=== PATIENT | male | born 1965 | race Asian ===

== ENCOUNTER 2022-02-02 00:39 | Inpatient (IN) | payer OTHER ==
[~2022-02-02] VITALS: Ht 162.6 cm; Wt 68.0 kg
[2022-02-02 02:58] LABS: BASOPHILS % 0.9 % (0.0-2.0); EOSINOPHILS % 3.1 % (0.0-5.0); HEMATOCRIT. 43.1 % (42.0-52.0); MEAN CORPUSCULAR HEMOGLOBIN 31.9 pg (28.0-32.0); MEAN CORPUSCULAR VOLUME 91.5 fL (80.0-94.0); MEAN PLATELET VOLUME 8.1 fl (7.4-10.4); PLATELET 213 x1000/uL (130-400); RED BLOOD CELL COUNT 4.71 mill/uL (4.7-6.1)
[2022-02-02 03:06] LABS: CHLORIDE 106 mEq/L (98-107)
[2022-02-02] MEDS ORDERED: MORPHINE SULFATE 4 MG/ML CPJ (NOT FOR IM USE) IV NR (04:24)
[2022-02-02] MEDS ORDERED: ONDANSETRON HCL 4MG/2ML INJ IV NR (04:24)
[2022-02-02 05:04] LABS: CLARITY URINE CLOUDY (CLEAR); COLOR URINE YELLOW (YELLOW); KETONES URINE NEGATIVE (NEGATIVE); LEUKOCYTE ESTERASE URINE NEGATIVE (NEGATIVE); NITRITE URINE NEGATIVE (NEGATIVE); OCCULT BLOOD URINE NEGATIVE (NEGATIVE); PROTEIN URINE NEGATIVE (NEGATIVE); SPECIFIC GRAVITY URINE 1.017 (1.005-1.030)
[2022-02-02] MEDS ORDERED: SODIUM CHLORIDE 0.9% 1,000 ML IV ONE (05:30)
[2022-02-02] MEDS ORDERED: ACETAMINOPHEN 325MG TABLET PO PRN ×3 (09:15→10:30)
[2022-02-02] MEDS ORDERED: KETOROLAC 15MG/ML VIAL IV PRN (09:15)
[2022-02-02 09:41] LABS: ETHANOL BLOOD < 10 mg/dL; HDL CHOLESTEROL 42 mg/dL (40-59); LDL CHOLESTEROL 69 mg/dL (5-100)
[2022-02-02] MEDS ORDERED: PANTOPRAZOLE SODIUM 40 MG/VIAL IV SCH (10:28)
[2022-02-02] MEDS ORDERED: ZOLPIDEM TARTRATE 5MG TABLET PO PRN (10:30)
[2022-02-02] MEDS ORDERED: MAGNESIUM/ALUMINUM HYDROXIDE/SIMETHICONE 30ML UDC PO PRN (10:30)
[2022-02-02] MEDS ORDERED: DOCUSATE SODIUM 100MG CAPSULE PO PRN (10:30)
[2022-02-02] MEDS ORDERED: CLONIDINE 0.1MG TABLET PO PRN (10:30)
[2022-02-02] MEDS ORDERED: NA PHOS,M-B/NA PHOS,DI-BA ENEMA 118ML PR PRN (10:30)
[2022-02-02] MEDS ORDERED: ONDANSETRON HCL 4MG/2ML INJ IV PRN (10:30)
[2022-02-02] MEDS ORDERED: GUAIFENESIN 200MG/10ML SUGAR FREE UDC PO PRN (10:30)
[2022-02-02] MEDS ORDERED: IPRATROPIUM/ALBUTEROL 0.5-3(2.5)MG/3ML NEB NEB PRN (10:30)
[2022-02-02 10:35] LABS: AMYLASE 78 IU/L (25-115)
[2022-02-02] MEDS: ENOXAPARIN 40MG/0.4ML SYR SUBCUT SCH (14:08)
[2022-02-02 18:00] VITALS: BP 143/92
[2022-02-02 19:53] VITALS: BP 130/80
[2022-02-02 20:00] VITALS: BP 130/80
[2022-02-02] MEDS ORDERED: CHOL400D7 MT (20:23)
[2022-02-02] MEDS ORDERED: NAPR-681 PO (20:24)
[2022-02-02] MEDS: DOXAZOSIN MESYLATE 4MG TABLET PO SCH (20:40)
[2022-02-03] VITALS: BP 116/73
[2022-02-03] MEDS ORDERED: ENOXAPARIN 40MG/0.4ML SYR SUBCUT SCH (09:00)
[2022-02-03 11:55] LABS: BASOPHILS % 1.2 % (0.0-2.0); EOSINOPHILS % 4.3 % (0.0-5.0); HEMATOCRIT. 41.2 % (42.0-52.0); HEMOGLOBIN. 14.7 g/dL (14.0-18.0); LYMPHOCYTES % 20.4 % (20.0-50.0); MEAN CORPUSCULAR HEMOGLOBIN 32.6 pg (28.0-32.0); MEAN CORPUSCULAR VOLUME 91.4 fL (80.0-94.0); MEAN PLATELET VOLUME 8.7 fl (7.4-10.4); MONOCYTES % 7.9 % (2.0-8.0); NEUTROPHILS % 66.2 % (40.0-76.0); PLATELET 185 x1000/uL (130-400); RED BLOOD CELL COUNT 4.51 mill/uL (4.7-6.1); RED CELL DISTRIBUTION WIDTH 12.5 % (11.6-14.6)
[2022-02-03 12:00] VITALS: BP 115/80
[2022-02-03 13:42] LABS: CHLORIDE 105 mEq/L (98-107)
[2022-02-03 13:57] LABS: AMYLASE 51 IU/L (25-115); PHOSPHORUS 3.7 mg/dL (2.5-4.9)
[2022-02-03] MEDS ORDERED: POTASSIUM CHLORIDE 20MEQ TABLET SR PO NR (15:45)
[2022-02-03 16:00] VITALS: BP 110/73
[2022-02-03 20:00] VITALS: BP 110/59
[2022-02-03] MEDS: DOXAZOSIN MESYLATE 4MG TABLET PO SCH (23:36)
[2022-02-04] VITALS: BP 127/68
[2022-02-04 04:00] VITALS: BP 107/67
[2022-02-04 08:00] VITALS: BP 109/72
[2022-02-04] MEDS: ENOXAPARIN 40MG/0.4ML SYR SUBCUT SCH ×2 (09:00→10:21)
[2022-02-04] MEDS: FAMOTIDINE 20MG/2ML VIAL IV SCH ×2 (10:21→21:26)
[2022-02-04 12:00] VITALS: BP 116/75
[2022-02-04 16:00] VITALS: BP 120/75
[2022-02-04 20:00] VITALS: BP 121/84
[2022-02-04] MEDS: DOXAZOSIN MESYLATE 4MG TABLET PO SCH (21:26)
[2022-02-05] VITALS: BP 113/88
[2022-02-05 04:00] VITALS: BP 114/69
[2022-02-05 08:00] VITALS: BP 115/71
[2022-02-05 12:31] VITALS: BP 115/71
== END 2022-02-05 13:30 | disposition home or self-care (01) | DRG 552 ==
LOC: ER 00:39 → MICUSO 07:09 → 8WST 18:17
PROVIDERS: ADMIT Internal Medicine; ATTEND Internal Medicine
DX: M48.061 Spinal stenosis, lumbar region without neurogenic claudication (principal); E78.5 Hyperlipidemia, unspecified; N20.0 Calculus of kidney; N40.0 Benign prostatic hyperplasia without lower urinary tract symptoms; Z20.822 Contact with and (suspected) exposure to COVID-19
CPT/HCPCS: 36415; 71045; 72100; 72148; 74176; 80053; 80061; 80320; 81003; 82150; 83605; 83735; 84100; 84484; 85025; 87426; 93005; 93970; 99285; C9113; C9803; J1650; J1885; J2270; J2405; J3490; J7030; G0480